=== PATIENT | male | born 1980 | race African-American/Black ===

== ENCOUNTER 2016-11-21 21:34 | Inpatient (IN) | payer OTHER ==
[~2016-11-21] VITALS: Ht 180.3 cm; Wt 72.1 kg
[2016-11-21 21:54] VITALS: BP 140/79; PULSE 96; RESP 22; O2SAT 94
[2016-11-21] MEDS ORDERED: SODIUM CHLOR 0.9% 1000 ML INJ 1,000 ML IV SCH ×2 (21:55→22:59)
[2016-11-21] MEDS ORDERED: LORazepam 2 MG/ML VIAL ONE (21:57)
[2016-11-21] MEDS ORDERED: LORazepam 2 MG/ML VIAL IM ONE (22:00)
--- NOTE | 2016-11-21 22:07 | PD ---
HPI Chief Complaint: Psychiatric Symptoms Time Seen by Provider: 21:55 Travel History International Travel<30 days: No Contact w/Intl Traveler<30days: No Traveled to known affect area: No History of Present Illness HPI This is a patient whose legal name is Robert Valero who has been seen here in the past for cocaine-related issues including seizures, rhabdomyolysis. He presents now under [place] act initiated by the Police Department. Reportedly the patient is living in a sober living community however he locked himself in the bathroom and used fllacca. The patient is currently tremulous, agitated and only minimally responding to questions. Therefore history is limited. [facility] Social History Alcohol Use: Yes Tobacco Use: Yes Substance Use: Yes Allergies-Medications (Allergen,Severity, Reaction): Coded Allergies: No Known Allergies (Unverified , 11/21/16) Reported Meds & Prescriptions Reported Meds & Active Scripts Active Active Prescriptions or Reported Medications Unobtainable Review of Systems ROS Limitations: Altered Mental Status, Combative Except as stated in HPI: all other systems reviewed are Neg Physical Exam Exam Limitations: Altered Mental Status, Combative Narrative GENERAL: This is a well-developed well-nourished male who is visibly agitated, tremulous, muttering to himself. SKIN: Warm and dry. HEAD: Atraumatic. Normocephalic. EYES: Pupils equal and round. No scleral icterus. No injection or drainage. ENT: No nasal bleeding or discharge. Mucous membranes pink and moist. NECK: Trachea midline. No JVD. CARDIOVASCULAR: Regular rate and rhythm. No murmur appreciated. RESPIRATORY: No accessory muscle use. Clear to auscultation. Breath sounds equal bilaterally. GASTROINTESTINAL: Abdomen soft, non-tender, nondistended. Hepatic and splenic margins not palpable. MUSCULOSKELETAL: No obvious deformities. No clubbing. No cyanosis. No edema. NEUROLOGICAL: Awake and alert. No obvious cranial nerve deficits. Motor grossly within normal limits. Data Data Last Documented VS Vital Signs Date Time Temp Pulse Resp B/P (MAP) Pulse Ox O2 Delivery O2 Flow Rate FiO2 11/21/16 23:36 87 18 135/75 (95) 95 Room Air Orders Orders Lorazepam Inj (Ativan Inj) (11/21/16 22:00) Complete Blood Count With Diff (11/21/16 21:55) Comprehensive Metabolic Panel (11/21/16 21:55) Creatine Kinase (Cpk) (11/21/16 21:55) Thyroid Stimulating Hormone (11/21/16 21:55) Ct Brain W/O Iv Contrast(Rout) (11/21/16 21:55) Sodium Chlor 0.9% 1000 Ml Inj (Ns 1000 M (11/21/16 21:55) Drug Screen, Random Urine (11/21/16 21:55) Alcohol (Ethanol) (11/21/16 21:55) Lorazepam Inj (Ativan Inj) (11/21/16 21:57) Haloperidol Inj (Haldol Inj) (11/21/16 22:30) Diphenhydramine Inj (Benadryl Inj) (11/21/16 22:30) Ecg Monitoring (11/21/16 22:28) Oximetry (11/21/16 22:28) End Tidal Co2 (Etco2) (11/21/16 ) Midazolam Inj (Versed Inj) (11/21/16 22:47) Sodium Chlor 0.9% 1000 Ml Inj (Ns 1000 M (11/21/16 22:59) Midazolam Inj (Versed Inj) (11/21/16 23:15) CKMB (11/21/16 22:50) CKMB% (11/21/16 22:50) Lactic Acid (11/21/16 23:40) Midazolam Inj (Versed Inj) (11/22/16 00:00) Add Patient To Providers List (11/22/16 ) Admit Order (Ed Use Only) (11/22/16 01:24) Labs Laboratory Tests Test 11/21/16 22:50 11/21/16 23:50 White Blood Count 11.6 TH/MM3 Red Blood Count 4.30 MIL/MM3 Hemoglobin 14.2 GM/DL Hematocrit 41.3 % Mean Corpuscular Volume 96.2 FL Mean Corpuscular Hemoglobin 33.1 PG Mean Corpuscular Hemoglobin Concent 34.4 % Red Cell Distribution Width 13.5 % Platelet Count 176 TH/MM3 Mean Platelet Volume 8.5 FL Neutrophils (%) (Auto) 67.9 % Lymphocytes (%) (Auto) 17.9 % Monocytes (%) (Auto) 13.4 % Eosinophils (%) (Auto) 0.1 % Basophils (%) (Auto) 0.7 % Neutrophils # (Auto) 7.9 TH/MM3 Lymphocytes # (Auto) 2.1 TH/MM3 Monocytes # (Auto) 1.6 TH/MM3 Eosinophils # (Auto) 0.0 TH/MM3 Basophils # (Auto) 0.1 TH/MM3 CBC Comment DIFF FINAL Differential Comment Blood Urea Nitrogen 23 MG/DL Creatinine 2.19 MG/DL Random Glucose 78 MG/DL Total Protein 8.5 GM/DL Albumin 4.4 GM/DL Calcium Level 9.2 MG/DL Alkaline Phosphatase 84 U/L Aspartate Amino Transf (AST/SGOT) 44 U/L Alanine Aminotransferase (ALT/SGPT) 21 U/L Total Bilirubin 1.2 MG/DL Sodium Level 134 MEQ/L Potassium Level 3.6 MEQ/L Chloride Level 98 MEQ/L Carbon Dioxide Level 19.4 MEQ/L Anion Gap 17 MEQ/L Estimat Glomerular Filtration Rate 32 ML/MIN Total Creatine Kinase 1172 U/L Creatine Kinase MB 4.5 NG/ML Creatine Kinase MB % 0.4 % Thyroid Stimulating Hormone 3rd Gen 0.534 uIU/ML Ethyl Alcohol Level LESS THAN 3 MG/DL Lactic Acid Level 1.2 mmol/L MDM Medical Decision Making Medical Screen Exam Complete: Yes Emergency Medical Condition: Yes Medical Record Reviewed: Yes Differential Diagnosis Sympathomimetic drug abuse versus delirium versus encephalopathy versus acute psychosis versus schizophrenia Narrative Course This patient required multiple doses of benzodiazepines as well as 1 dose of Benadryl and Haldol for sedation in order to obtain labwork and imaging studies. IV fluids were ordered. The patient was placed in restraints. He was placed on ECG monitoring and pulse oximetry. Lab work reveals a total CK of 1172 as well as a BUN of 23 and a creatinine of 2.9 which is elevated from his baseline. CT of the brain is normal. At this point in time the plan is to admit the patient for further evaluation and treatment. Diagnosis Primary Impression: Substance-induced delirium Additional Impressions: Acute renal insufficiency Rhabdomyolysis Qualified Codes: M62.82 - Rhabdomyolysis Admitting Information Admitting Physician Requests: Admit Scripts Unable to Obtain Active Prescriptions or Reported Meds Se Mo Nov 21, 2016 22:06
[2016-11-21] MEDS ORDERED: HALOPERIDOL LACTATE 5 MG/ML AMP IM ONE (22:30)
[2016-11-21] MEDS ORDERED: diphenhydrAMINE HCL 50 MG/ML VIAL IM ONE (22:30)
[2016-11-21] MEDS ORDERED: MIDAZOLAM HCL 5 MG/ML VIAL (1 ML) ONE (22:47)
--- NOTE | 2016-11-21 23:05 | PD ---
Physical Exam Narrative I, Dr. Perez, have reviewed the advance practice practitioner's documentation and am in agreement, met with the patient face to face, made the diagnosis, and the medical decision making was done by me. *My assessment and Findings: Drug induced psychosis vs. drug induced rhabdomyolysis This is Robert Valero. 36yo M under [place] after smoking flakka in drug rehab residence. Pt was found sitting outside bathroom drinking water and apparently had locked himself in the bathroom and smoke flakka. Unable to obtain further history as pt is screaming, uncooperative and thrashing around in the bed. Pt moving all extremities and no overt signs of trauma but not answering questions. Pt has been here before for rhabdomyolysis and cocaine induced seizure. Pt initially given ativan 2mg IM because he was a threat to himself and others. However, pt was still very agitated and a threat to others so haldol 5mg IM, versed 4mg IV and diphenhydramine 50mg IV given. Pt was calm after these medications and placed on continuous cardiac monitoring and end tidal CO2. Pt was about to go to CT scan and started thrashing around and being a harm to himself. Another 2 mg of versed ordered and given. Labs reviewed, WBC 11.6. Lactic acid normal at 1.2. Creatinine elevated at 2.19 with CPK of 1172. Pt's creatinine was normal before. Alcohol negative. CT brain negative. Pt is on continuous monitor and vital signs are stable. Pt is easily agitated and arousable with stimulation. Discussed with hospitalist who does not feel comfortable having him on a regular floor so soil sampler Dr. Koenig called for admission for drug induced delirium with acute renal failure and rhabdomyolysis. Pt given NS IVF x2. Discussed with Dr. Koenig and accepted to his service. Data Data Last Documented VS Vital Signs Date Time Temp Pulse Resp B/P (MAP) Pulse Ox O2 Delivery O2 Flow Rate FiO2 11/21/16 23:36 87 18 135/75 (95) 95 Room Air Orders Orders Lorazepam Inj (Ativan Inj) (11/21/16 22:00) Complete Blood Count With Diff (11/21/16 21:55) Comprehensive Metabolic Panel (11/21/16 21:55) Creatine Kinase (Cpk) (11/21/16 21:55) Thyroid Stimulating Hormone (8/20/17 21:55) Ct Brain W/O Iv Contrast(Rout) (11/21/16 21:55) Sodium Chlor 0.9% 1000 Ml Inj (Ns 1000 M (11/21/16 21:55) Drug Screen, Random Urine (11/21/16 21:55) Alcohol (Ethanol) (11/21/16 21:55) Lorazepam Inj (Ativan Inj) (11/21/16 21:57) Haloperidol Inj (Haldol Inj) (11/21/16 22:30) Diphenhydramine Inj (Benadryl Inj) (11/21/16 22:30) Ecg Monitoring (11/21/16 22:28) Oximetry (11/21/16 22:28) End Tidal Co2 (Etco2) (11/21/16 ) Midazolam Inj (Versed Inj) (11/21/16 22:47) Sodium Chlor 0.9% 1000 Ml Inj (Ns 1000 M (11/21/16 22:59) Midazolam Inj (Versed Inj) (11/21/16 23:15) CKMB (11/21/16 22:50) CKMB% (11/21/16 22:50) Lactic Acid (11/21/16 23:40) Midazolam Inj (Versed Inj) (11/22/16 00:00) Add Patient To Providers List (11/22/16 ) Labs Laboratory Tests Test 11/21/16 22:50 11/21/16 23:50 White Blood Count 11.6 TH/MM3 Red Blood Count 4.30 MIL/MM3 Hemoglobin 14.2 GM/DL Hematocrit 41.3 % Mean Corpuscular Volume 96.2 FL Mean Corpuscular Hemoglobin 33.1 PG Mean Corpuscular Hemoglobin Concent 34.4 % Red Cell Distribution Width 13.5 % Platelet Count 176 TH/MM3 Mean Platelet Volume 8.5 FL Neutrophils (%) (Auto) 67.9 % Lymphocytes (%) (Auto) 17.9 % Monocytes (%) (Auto) 13.4 % Eosinophils (%) (Auto) 0.1 % Basophils (%) (Auto) 0.7 % Neutrophils # (Auto) 7.9 TH/MM3 Lymphocytes # (Auto) 2.1 TH/MM3 Monocytes # (Auto) 1.6 TH/MM3 Eosinophils # (Auto) 0.0 TH/MM3 Basophils # (Auto) 0.1 TH/MM3 CBC Comment DIFF FINAL Differential Comment Blood Urea Nitrogen 23 MG/DL Creatinine 2.19 MG/DL Random Glucose 78 MG/DL Total Protein 8.5 GM/DL Albumin 4.4 GM/DL Calcium Level 9.2 MG/DL Alkaline Phosphatase 84 U/L Aspartate Amino Transf (AST/SGOT) 44 U/L Alanine Aminotransferase (ALT/SGPT) 21 U/L Total Bilirubin 1.2 MG/DL Sodium Level 134 MEQ/L Potassium Level 3.6 MEQ/L Chloride Level 98 MEQ/L Carbon Dioxide Level 19.4 MEQ/L Anion Gap 17 MEQ/L Estimat Glomerular Filtration Rate 32 ML/MIN Total Creatine Kinase 1172 U/L Creatine Kinase MB 4.5 NG/ML Creatine Kinase MB % 0.4 % Thyroid Stimulating Hormone 3rd Gen 0.534 uIU/ML Ethyl Alcohol Level LESS THAN 3 MG/DL Lactic Acid Level 1.2 mmol/L MDM Supervised Visit with MIREYA: Yes Critical Care Narrative Aggregate critical care time was 60 minutes. Time to perform other separately billable procedures was not included in the critical care time. My time did not include minutes spent treating any other patients simultaneously or on activities that did not directly contribute to the patient's treatment. The services I provided to this patient were to treat and/or prevent clinically significant deterioration that could result in: cardiovascular collapse or . I provided critical care services requiring my management, as noted below: Chart data review, documentation time, medication orders and management, vital sign assessments/reviewing monitor data, ordering and reviewing lab tests, ordering and interpreting/reviewing x-rays and diagnostic studies, care of the patient and discussion of the patient with the admitting physicians. Diagnosis Primary Impression: Drug-induced delirium Additional Impressions: BASSEM (acute kidney injury) Rhabdomyolysis Qualified Codes: M62.82 - Rhabdomyolysis Admitting Information Admitting Physician Requests: Admit Scripts Unable to Obtain Active Prescriptions or Reported Meds Karen Perez DO Nov 21, 2016 23:05
[2016-11-21 23:12] LABS: AUTOMATED NEUTROPHIL # 7.9 TH/MM3 (1.8-7.7); BASOPHIL # 0.1 TH/MM3 (0-0.2); BASOPHIL % 0.7 % (0.0-2.0); EOSINOPHIL % 0.1 % (0.0-4.0); HEMATOCRIT 41.3 % (39.0-51.0); HEMO FLAGS DIFF FINAL; LYMPH % 17.9 % (9.0-44.0); LYMPHOCYTE # 2.1 TH/MM3 (1.0-4.8); MEAN CELL VOLUME 96.2 FL (80.0-100.0); MEAN CORPUSCULAR HEMOGLOBIN 33.1 PG (27.0-34.0); MEAN CORPUSCULAR HGB CONC 34.4 % (32.0-36.0); MONO % 13.4 % (0.0-8.0); NEUT % 67.9 % (16.0-70.0); PLATELET COUNT 176 TH/MM3 (150-450); RED CELL DISTRIBUTION WIDTH 13.5 % (11.6-17.2); WHITE BLOOD COUNT 11.6 TH/MM3 (4.0-11.0)
[2016-11-21] MEDS ORDERED: MIDAZOLAM HCL 2 MG/2 ML VIAL IV PUSH ONE (23:15)
[2016-11-21 23:36] VITALS: BP 135/75; PULSE 87; RESP 18; O2SAT 95
[2016-11-21 23:38] LABS: ALCOHOL LESS THAN 3 MG/DL (0-5); ALKALINE PHOSPHATASE 84 U/L (45-117); ALT (GPT) 21 U/L (12-78); ANION GAP 17 MEQ/L (5-15); AST (GOT) 44 U/L (15-37); BICARBONATE 19.4 MEQ/L (21.0-32.0); BLOOD UREA NITROGEN 23 MG/DL (7-18); CHLORIDE 98 MEQ/L (98-107); CREATINE KINASE 1172 U/L (39-308); GLOMERULAR FILTRATION RATE 32 ML/MIN (>89); POTASSIUM 3.6 MEQ/L (3.5-5.1); SODIUM (NA) 134 MEQ/L (136-145); TOTAL BILIRUBIN ADULT 1.2 MG/DL (0.2-1.0)
[2016-11-21 23:50] LABS: CKMB 4.5 NG/ML (0.5-3.6)
[2016-11-22] VITALS (18 sets, daily range): BP systolic 126–179; BP diastolic 69–104; PULSE 46–77; RESP 12–18; TEMP 98.3–98.6; O2SAT 95–100
[2016-11-22] MEDS ORDERED: MIDAZOLAM HCL 2 MG/2 ML VIAL IV PUSH ONE
--- NOTE | 2016-11-22 00:44 | RADRPT ---
EXAM DATE/TIME: 11/22/2016 00:23 [place] COMPARISON: No previous studies available for comparison. INDICATIONS : Altered mental status. RADIATION DOSE: 56.35 CTDIvol (mGy) MEDICAL HISTORY : Non-responsive. SURGICAL HISTORY : Non-responsive. ENCOUNTER: Initial ACUITY: 1 day PAIN SCALE: Non-responsive LOCATION: cranial TECHNIQUE: Multiple contiguous axial images were obtained of the head. Using automated exposure control and adj ustment of the mA and/or kV according to patient size, radiation dose was kept as low as reasonably a chievable to obtain optimal diagnostic quality images. DICOM format image data is available electro nically for review and comparison. FINDINGS: CEREBRUM: The ventricles are normal for age. No evidence of midline shift, mass lesion, hemorrhage or acute in farction. No extra-axial fluid collections are seen. POSTERIOR FOSSA: The cerebellum and brainstem are intact. The 4th ventricle is midline. The cerebellopontine angle i s unremarkable. EXTRACRANIAL: The visualized portion of the orbits is intact. SKULL: The calvaria is intact. No evidence of skull fracture. CONCLUSION: Normal examination. Ari Perales MD on November 22, 2016 at 0:40 Board Certified Radiologist. This report was verified electronically.
[2016-11-22] MEDS ORDERED: SODIUM BICARBONATE 8.4% INJ 150 MEQ in DEXTROSE 5% IN WATE 1000ML INJ 1,000 ML IV SCH ×2 (01:30)
--- NOTE | 2016-11-22 01:30 | HHI.HP ---
HPI Service Critical Care Medicine Primary Care Physician Unknown Admission Diagnosis drug-induced delirium, acute renal insufficiency, rhabdomyolysis Diagnosis: Travel History International Travel<30 Days: No Contact w/Intl Traveler <30 Da: No Traveled to Known Affected Are: No History of Present Illness This is a patient whose legal name is Robert Valero who has been seen by me here in the past for cocaine-related issues including seizures, and rhabdomyolysis. He presents today under [place] act initiated by the Police Department. Reportedly the patient is living in a sober living community however he locked himself in the bathroom and used Fllacca. The patient is currently tremulous, agitated and only minimally responding to questions is very limited history to be able to obtain. Review of Systems ROS Unobtainable due to patient's altered mental status and agitation Past Family Social History Allergies: Coded Allergies: No Known Allergies (Unverified , 11/21/16) Past Medical History Polysubstance abuse Rhabdomyolysis Past Surgical History None Reported Medications Reported Meds & Active Scripts Active Active Prescriptions or Reported Medications Unobtainable Active Ordered Medications Current Medications Medications (Trade) Dose Ordered Sig/[place] Route PRN Reason Start Time Stop Time Status Last Admin Dose Admin Sodium Bicarbonate 150 meq/Dextrose 1,150 ml @ 75 mls/hr [id number] IV 11/22/16 01:30 11/22/16 02:43 Sodium Chloride 1,000 ml @ 84 mls/hr [id number] IV 11/22/16 01:31 11/22/16 03:00 Sodium Chloride (NS Flush) 2 ml UNSCH PRN .XX FLUSH AFTER USING IV ACCESS 11/22/16 01:45 Sodium Chloride (NS Flush) 2 ml BID .XX 11/22/16 09:00 Acetaminophen (Tylenol) 650 mg Q6H PRN PO PAIN 1-10 AND/OR FEVER >101F 11/22/16 01:45 Famotidine (Pepcid Inj) 20 mg Q12HR IV PUSH 11/22/16 09:00 Albuterol/ Ipratropium (Duoneb Neb) 1 ampule Q2HR NEB PRN INH WHEEZING 11/22/16 01:45 Heparin Sodium (Porcine) (Heparin Inj) 5,000 units Q12H SQ 11/22/16 01:45 11/22/16 03:01 Miscellaneous Information 1 [id number] XX 11/22/16 01:45 Chlorhexidine Gluconate (Chlorhexidine 2% Cloth) 3 pack Taper DAILY@04 TOP 11/22/16 04:00 11/18/17 03:59 Chlorhexidine Gluconate (Chlorhexidine 2% Cloth) 3 pack UNSCH PRN TOP HYGIENIC CARE 11/22/16 01:45 Senna/Docusate Sodium (Nakia-Colace) 1 tab BID PO 11/22/16 09:00 Magnesium Hydroxide (Milk Of Magnesia Liq) 30 ml Q12H PRN PO MILD - MODERATE CONSTIPATION 11/22/16 01:45 Sennosides (Senokot) 17.2 mg Q12H PRN PO MODERATE - SEVERE CONSTIPATION 11/22/16 01:45 Bisacodyl (Dulcolax Supp) 10 mg DAILY PRN RECTAL SEVERE CONSITIPATION 11/22/16 01:45 Lactulose (Lactulose Liq) 30 ml DAILY PRN PO SEVERE CONSITIPATION 11/22/16 01:45 Family History Unobtainable Social History History of cocaine abuse Undergoing substance abuse treatment Physical Exam Vital Signs Vital Signs Date Time Temp Pulse Resp B/P (MAP) Pulse Ox O2 Delivery O2 Flow Rate FiO2 11/21/16 23:36 87 18 135/75 (95) 95 Room Air 11/21/16 21:54 96 22 140/79 (99) 94 Physical Exam GENERAL: Well-nourished, well-developed patient. Young man, agitated not following commands SKIN: Warm and dry. HEAD: Normocephalic. EYES: No scleral icterus. No injection or drainage. NECK: Supple, trachea midline. No JVD or lymphadenopathy. CARDIOVASCULAR: Regular rate and rhythm without murmurs, gallops, or rubs. RESPIRATORY: Breath sounds equal bilaterally. No accessory muscle use. GASTROINTESTINAL: Abdomen soft, non-tender, nondistended. MUSCULOSKELETAL: No cyanosis, or edema. BACK: Nontender without obvious deformity. NEURO EXAM: GCS: M5 V3 E4 Mental Status: The patient is agitated and confused Cranial Nerves: Pupils are round, reactive to light. Reflexes: Biceps, patellar, and Achilles are 2/4 bilaterally. Occasional clonus after stimulation. Motor: Good muscle tone. Strength is 5/5 bilaterally. Cerebellar: [id number] and gvox-[id number] test unable to examine. Laboratory Laboratory Tests Test 11/21/16 22:50 11/21/16 23:50 White Blood Count 11.6 Red Blood Count 4.30 Hemoglobin 14.2 Hematocrit 41.3 Mean Corpuscular Volume 96.2 Mean Corpuscular Hemoglobin 33.1 Mean Corpuscular Hemoglobin Concent 34.4 Red Cell Distribution Width 13.5 Platelet Count 176 Mean Platelet Volume 8.5 Neutrophils (%) (Auto) 67.9 Lymphocytes (%) (Auto) 17.9 Monocytes (%) (Auto) 13.4 Eosinophils (%) (Auto) 0.1 Basophils (%) (Auto) 0.7 Neutrophils # (Auto) 7.9 Lymphocytes # (Auto) 2.1 Monocytes # (Auto) 1.6 Eosinophils # (Auto) 0.0 Basophils # (Auto) 0.1 CBC Comment DIFF FINAL Differential Comment Blood Urea Nitrogen 23 Creatinine 2.19 Random Glucose 78 Total Protein 8.5 Albumin 4.4 Calcium Level 9.2 Alkaline Phosphatase 84 Aspartate Amino Transf (AST/SGOT) 44 Alanine Aminotransferase (ALT/SGPT) 21 Total Bilirubin 1.2 Sodium Level 134 Potassium Level 3.6 Chloride Level 98 Carbon Dioxide Level 19.4 Anion Gap 17 Estimat Glomerular Filtration Rate 32 Total Creatine Kinase 1172 Creatine Kinase MB 4.5 Creatine Kinase MB % 0.4 Thyroid Stimulating Hormone 3rd Gen 0.534 Ethyl Alcohol Level LESS THAN 3 Lactic Acid Level 1.2 Result Diagram: 11/21/16224911/21/162249 Course Altered mental status - Fllacca intoxication - Haldol and Ativan when necessary for agitation - Neuro checks per unit protocol Rhabdomyolysis - Urine alkalinization with sodium bicarbonate - Monitor CPK Acute kidney injury - Due to above - Strict I's and O's - Ernst insertion - Monitor creatinine and electrolytes Hypertension - Hydralazine when necessary to keep SBP less than 160 and the DBP less than 90 DVT GI prophylaxis - Teds SCDs - Subcutaneous heparin - Pepcid Critical Care: The total critical care time was 35 minutes. Time to perform other separately billable procedures was not included in the critical care time. Caprini VTE Risk Assessment Caprini VTE Risk Assessment: Mod/High Risk (score >= 2) Caprini Risk Assessment Model Point Value = 1 Point Value = 2 Point Value = 3 Point Value = 5 Age 41-60 Minor surgery BMI > 25 kg/m2 Swollen legs Varicose veins or History of unexplained or recurrent spontaneous Oral contraceptives or hormone replacement Sepsis (< 1 month) Serious lung disease, including pneumonia (< 1 month) Abnormal pulmonary function Acute myocardial infarction Congestive heart failure (< 1 month) History of inflammatory bowel disease Medical patient at bed rest Age 61-74 Arthroscopic surgery Major open surgery (> 45 min) Laparoscopic surgery (> 45 min) Malignancy Confined to bed (> 72 hours) Immobilizing plaster cast Central venous access Age >= 75 History of VTE Family history of VTE Factor V Leiden Prothrombin [id number] Lupus anticoagulant Anticardiolipin antibodies Elevated serum homocysteine Heparin-induced thrombocytopenia Other congenital or acquired thrombophilia Stroke (< 1 month) Elective arthroplasty Hip, pelvis, or leg fracture Acute spinal cord injury (< 1 month) Prophylaxis Regimen Total Risk Factor Score Risk Level Prophylaxis Regimen 0-1 Low Early ambulation 2 Moderate Order ONE of the following: *Sequential Compression Device (SCD) *Heparin 5000 units SQ BID 3-4 Higher Order ONE of the following medications: *Heparin 5000 units SQ TID *Enoxaparin/Lovenox 40 mg SQ daily (WT < 150 kg, CrCl > 30 mL/min) *Enoxaparin/Lovenox 30 mg SQ daily (WT < 150 kg, CrCl > 10-29 mL/min) *Enoxaparin/Lovenox 30 mg SQ BID (WT < 150 kg, CrCl > 30 mL/min) AND/OR *Sequential Compression Device (SCD) 5 or more Highest Order ONE of the following medications: *Heparin 5000 units SQ TID (Preferred with Epidurals) *Enoxaparin/Lovenox 40 mg SQ daily (WT < 150 kg, CrCl > 30 mL/min) *Enoxaparin/Lovenox 30 mg SQ daily (WT < 150 kg, CrCl > 10-29 mL/min) *Enoxaparin/Lovenox 30 mg SQ BID (WT < 150 kg, CrCl > 30 mL/min) AND *Sequential Compression Device (SCD) Puneet Koenig MD Nov 22, 2016 01:30
[2016-11-22] MEDS ORDERED: LACTULOSE SYRUP 20 GM/30 ML CUP PO PRN (01:45)
[2016-11-22] MEDS ORDERED: MISCELLANEOUS NURSING INFORMATION XX SCH (01:45)
[2016-11-22] MEDS ORDERED: SENNOSIDES 8.6 MG TAB PO PRN (01:45)
[2016-11-22] MEDS ORDERED: SODIUM CHLORIDE 0.9% FLUSH 10 ML FLUSH PRN (01:45)
[2016-11-22] MEDS ORDERED: ACETAMINOPHEN 325 MG TAB PO PRN (01:45)
[2016-11-22] MEDS ORDERED: BISACODYL 10 MG SUPP RECTAL PRN (01:45)
[2016-11-22] MEDS ORDERED: RESP: ALBUTEROL 2.5 MG/IPRATROPIUM 0.5 MG NEB (PRN) INH (01:45)
[2016-11-22] MEDS ORDERED: CHLORHEXIDINE GLUCONATE 2 % 1 PACK (2 CLOTHS) TOP PRN (01:45)
[2016-11-22] MEDS ORDERED: MAGNESIUM HYDROXIDE SUSP 30 ML CUP PO PRN (01:45)
[2016-11-22] MEDS: SODIUM CHLOR 0.9% 1000 ML INJ 1,000 ML IV SCH ×2 (03:00→15:52)
[2016-11-22] MEDS: HEPARIN SODIUM - SQ 10,000 UNITS/ML VIAL SQ SCH ×2 (03:01→15:52)
[2016-11-22] MEDS: CHLORHEXIDINE GLUCONATE 2 % 1 PACK (2 CLOTHS) TOP SCH (04:00)
[2016-11-22 05:28] LABS: CKMB 5.3 NG/ML (0.5-3.6)
[2016-11-22] MEDS ORDERED: hydrALAZINE HCL 20 MG/ML VIAL IV PUSH PRN (05:30)
[2016-11-22] MEDS ORDERED: LORazepam 2 MG/ML VIAL IV PUSH PRN (05:30)
[2016-11-22] MEDS ORDERED: HALOPERIDOL LACTATE 5 MG/ML AMP IV PUSH PRN (05:30)
[2016-11-22] MEDS: SODIUM CHLORIDE 0.9% FLUSH 10 ML FLUSH SCH ×2 (08:28→21:00)
[2016-11-22] MEDS: DOCUSATE SODIUM 50 MG/SENNA 8.6 MG TAB PO SCH ×2 (09:00→21:00)
[2016-11-22] MEDS: FAMOTIDINE 20 MG/2 ML VIAL IV PUSH SCH ×2 (09:26→21:00)
[2016-11-22 09:40] LABS: BICARBONATE 22.6 MEQ/L (21.0-32.0)
[2016-11-22 10:05] LABS: CKMB 5.1 NG/ML (0.5-3.6)
[2016-11-22] MEDS ORDERED: POTASSIUM CHLOR 20 MEQ PREMIX 100 ML IV ONE (14:00)
[2016-11-22] MEDS: POTASSIUM CHLORIDE 20 MEQ CONTROLLED RELEASE TAB PO SCH (21:00)
[2016-11-23] VITALS (7 sets, daily range): BP systolic 132–195; BP diastolic 82–117; PULSE 55–75; RESP 18–20; TEMP 97.6–98.6; O2SAT 95–100
[2016-11-23] MEDS: HEPARIN SODIUM - SQ 10,000 UNITS/ML VIAL SQ SCH ×2 (01:10→01:45)
[2016-11-23] MEDS: SODIUM CHLOR 0.9% 1000 ML INJ 1,000 ML IV SCH ×2 (02:21→21:48)
[2016-11-23] MEDS: CHLORHEXIDINE GLUCONATE 2 % 1 PACK (2 CLOTHS) TOP SCH (04:00)
[2016-11-23 04:20] LABS: AUTOMATED NEUTROPHIL # 2.1 TH/MM3 (1.8-7.7); BASOPHIL % 0.6 % (0.0-2.0); EOSINOPHIL # 0.1 TH/MM3 (0-0.4); EOSINOPHIL % 2.9 % (0.0-4.0); HEMATOCRIT 37.9 % (39.0-51.0); HEMO FLAGS DIFF FINAL; LYMPH % 35.7 % (9.0-44.0); LYMPHOCYTE # 1.7 TH/MM3 (1.0-4.8); MEAN CELL VOLUME 96.3 FL (80.0-100.0); MEAN CORPUSCULAR HEMOGLOBIN 31.9 PG (27.0-34.0); MEAN CORPUSCULAR HGB CONC 33.1 % (32.0-36.0); NEUT % 45.8 % (16.0-70.0); PLATELET COUNT 160 TH/MM3 (150-450); RED BLOOD COUNT 3.93 MIL/MM3 (4.50-5.90); RED CELL DISTRIBUTION WIDTH 12.9 % (11.6-17.2); WHITE BLOOD COUNT 4.7 TH/MM3 (4.0-11.0)
[2016-11-23 04:39] LABS: ALT (GPT) 15 U/L (12-78); ANION GAP 6 MEQ/L (5-15); AST (GOT) 25 U/L (15-37); BICARBONATE 32.6 MEQ/L (21.0-32.0); BLOOD UREA NITROGEN 15 MG/DL (7-18); CHLORIDE 102 MEQ/L (98-107); GLOMERULAR FILTRATION RATE 76 ML/MIN (>89); MAGNESIUM 2.4 MG/DL (1.5-2.5); POTASSIUM 3.1 MEQ/L (3.5-5.1); SODIUM (NA) 141 MEQ/L (136-145)
[2016-11-23 04:41] LABS: ALKALINE PHOSPHATASE 82 U/L (45-117); CREATINE KINASE 658 U/L (39-308); TOTAL BILIRUBIN ADULT 0.4 MG/DL (0.2-1.0)
[2016-11-23 04:58] LABS: CKMB 2.3 NG/ML (0.5-3.6)
[2016-11-23] MEDS ORDERED: ENALAPRILAT 1.25 MG/ML VIAL IV PRN (06:00)
[2016-11-23] MEDS: POTASSIUM CHLORIDE 20 MEQ CONTROLLED RELEASE TAB PO SCH ×2 (09:58→21:47)
[2016-11-23] MEDS: FAMOTIDINE 20 MG/2 ML VIAL IV PUSH SCH ×2 (09:58→21:50)
--- NOTE | 2016-11-23 15:16 | HHI.PR ---
Subjective Remarks no complains of pain good po, no nausea or vomiting Objective Vitals Vital Signs Date Time Temp Pulse Resp B/P (MAP) Pulse Ox O2 Delivery O2 Flow Rate FiO2 11/23/16 12:18 98.4 72 18 160/96 (117) 96 11/23/16 08:31 98.6 65 18 155/95 (115) 97 11/23/16 05:56 98.5 75 20 158/100 (119) 98 11/23/16 00:00 97.6 74 18 132/82 (99) 95 11/22/16 20:00 98.6 77 18 138/85 (102) 95 11/22/16 17:48 98.3 65 18 126/69 (88) 98 11/22/16 17:15 11/22/16 16:30 46 17 139/81 (100) 98 Room Air 11/22/16 15:30 54 15 127/78 (94) 99 Room Air I/O 11/22/16 11/22/16 11/22/16 11/23/16 11/23/16 11/23/16 06:59 14:59 22:59 06:59 14:59 22:59 Intake Total 360 ml Output Total 300 ml 300 ml Balance -300 ml -300 ml 360 ml Intake Oral 360 ml Output Urine Total 300 ml 300 ml # Voids 0 0 3 Result Diagram: 11/23/1634611/23/16346 Imaging Last Impressions Head CT 11/21/162154 Signed Impressions: Service Date/Time: Tuesday, November 22, 2016 00:23 - CONCLUSION: Normal examination. Ari Perales MD Objective Remarks awake and alert, NAD anicteric no nuchal rigidity lungs clear regular rhythm abdomen soft nontender extremities no edema up and ambulating Urinary Catheter: Yes Assessment to: Remove Date of Removal: Nov 23, 2016 A/P Assessment and Plan Altered mental status secondary to PSA - Fllacca intoxication - Haldol and Ativan when necessary for agitation - Neuro checks per unit protocol Rhabdomyolysis -- conitnue IVF- DC HC03 - CK trending down S/P Polysubstance abuse -counselled extensively - CM consult for treatment program/drug rehab Acute kidney injury - non oliguric Hypokalemia -will DC HC03 drip -give IV KCL and po -recheck in am Hypertension - Hydralazine when necessary to keep SBP less than 160 and the DBP less than 90 DVT GI prophylaxis - Teds SCDs- patient encourage to up and ambulate - Subcutaneous heparin - Marcelo Cohen MD Nov 23, 2016 15:16
[2016-11-23] MEDS: DOCUSATE SODIUM 50 MG/SENNA 8.6 MG TAB PO SCH ×2 (21:48→21:51)
[2016-11-23] MEDS: NS + KCL 20 MEQ INJ 1,000 ML IV SCH (21:48)
[2016-11-23] MEDS: SODIUM CHLORIDE 0.9% FLUSH 10 ML FLUSH SCH (21:51)
[2016-11-24 01:10] VITALS: BP 155/77; PULSE 54; RESP 18; TEMP 97; O2SAT 97
[2016-11-24] MEDS: HEPARIN SODIUM - SQ 10,000 UNITS/ML VIAL SQ SCH ×2 (01:45→13:45)
[2016-11-24] MEDS: CHLORHEXIDINE GLUCONATE 2 % 1 PACK (2 CLOTHS) TOP SCH (04:00)
[2016-11-24 08:00] VITALS: BP 179/104; PULSE 75; RESP 20; TEMP 98.1; O2SAT 97
[2016-11-24] MEDS: SODIUM CHLOR 0.9% 1000 ML INJ 1,000 ML IV SCH ×2 (08:44→08:49)
[2016-11-24] MEDS: NS + KCL 20 MEQ INJ 1,000 ML IV SCH ×3 (08:44→21:15)
[2016-11-24] MEDS: SODIUM CHLORIDE 0.9% FLUSH 10 ML FLUSH SCH (08:45)
[2016-11-24] MEDS: DOCUSATE SODIUM 50 MG/SENNA 8.6 MG TAB PO SCH ×2 (08:45→21:00)
[2016-11-24] MEDS: FAMOTIDINE 20 MG/2 ML VIAL IV PUSH SCH (08:45)
[2016-11-24] MEDS: POTASSIUM CHLORIDE 20 MEQ CONTROLLED RELEASE TAB PO SCH (08:46)
[2016-11-24 11:17] LABS: BICARBONATE 29.8 MEQ/L (21.0-32.0); POTASSIUM 3.3 MEQ/L (3.5-5.1)
[2016-11-24 12:00] VITALS: BP 166/96; PULSE 71; RESP 20; TEMP 98.6; O2SAT 95
--- NOTE | 2016-11-24 12:50 | HHI.PR ---
Subjective Remarks no nausea or vomiting patient actively wants to seek treatment program for his drug addiction states he wants to stay clean Objective Vitals Vital Signs Date Time Temp Pulse Resp B/P (MAP) Pulse Ox O2 Delivery O2 Flow Rate FiO2 11/24/16 08:00 98.1 75 20 179/104 (129) 97 11/24/16 01:10 97.0 54 18 155/77 (103) 97 11/23/16 21:43 158/82 (107) 11/23/16 20:00 98.2 55 18 195/117 (143) 100 11/23/16 15:54 98.3 63 18 158/97 (117) 98 I/O 11/23/16 11/23/16 11/23/16 11/24/16 11/24/16 11/24/16 06:59 14:59 22:59 06:59 14:59 22:59 Intake Total 360 ml Balance 360 ml Intake Oral 360 ml # Voids 3 Result Diagram: 11/23/16 0347 11/24/16 0935 Imaging Last Impressions Head CT 11/21/16 1073 Signed Impressions: Service Date/Time: Tuesday, November 22, 2016 00:23 - CONCLUSION: Normal examination. Ari Perales MD Objective Remarks awake and alert, NAD anicteric lungs clear regular rhythm extremities no edema up and ambulating Date of Removal: Nov 23, 2016 A/P Assessment and Plan Altered mental status secondary to PSA- REsolved- MS normal - Flacca intoxication/cocaine/cannabis - Haldol and Ativan when necessary for agitation - Rhabdomyolysis -- conitnue IVF- encourage po - CK trending down Polysubstance abuse -counselled extensively - CM consult for treatment program/drug rehab HYpertesnion- per patient known history -start on Procardia po daily 30 mg XL Acute kidney injury- resolved - non oliguric Hypokalemia - KCL daily CM- [facility] referral DVT GI prophylaxis up and ambulating around Marcelo Fitch MD Nov 24, 2016 12:50
[2016-11-24] MEDS ORDERED: POTASSIUM CHLOR 10 MEQ PREMIX 100 ML IV ONE (13:00)
[2016-11-24] MEDS ORDERED: POTASSIUM CHLORIDE 10 MEQ CAP PO ONE (14:00)
[2016-11-24] MEDS: NIFEdipine 30 MG SUSTAINED RELEASE TAB PO SCH (14:34)
[2016-11-24 16:00] VITALS: BP 168/97; PULSE 55; RESP 20; TEMP 98.3; O2SAT 98
[2016-11-24 20:00] VITALS: BP 162/98; PULSE 61; RESP 18; TEMP 98.2; O2SAT 97
[2016-11-24 21:47] VITALS: BP 162/98; PULSE 61; RESP 18; TEMP 98.2; O2SAT 97
[2016-11-25] VITALS: BP 153/93; PULSE 71; RESP 20; TEMP 98.7; O2SAT 97
[2016-11-25] MEDS: POTASSIUM CHLORIDE 20 MEQ CONTROLLED RELEASE TAB PO SCH ×2 (00:08→09:05)
[2016-11-25] MEDS: HEPARIN SODIUM - SQ 10,000 UNITS/ML VIAL SQ SCH ×2 (00:10→13:31)
[2016-11-25] MEDS: SODIUM CHLORIDE 0.9% FLUSH 10 ML FLUSH SCH ×2 (00:11→09:00)
[2016-11-25] MEDS: SODIUM CHLOR 0.9% 1000 ML INJ 1,000 ML IV SCH ×2 (00:11→09:04)
[2016-11-25 04:00] VITALS: BP 166/76; PULSE 62; RESP 20; TEMP 97.5; O2SAT 96
[2016-11-25] MEDS: CHLORHEXIDINE GLUCONATE 2 % 1 PACK (2 CLOTHS) TOP SCH (04:00)
[2016-11-25] MEDS: NS + KCL 20 MEQ INJ 1,000 ML IV SCH (07:15)
[2016-11-25 08:47] VITALS: BP 155/98; PULSE 55; RESP 20; TEMP 98.4; O2SAT 96
[2016-11-25] MEDS: DOCUSATE SODIUM 50 MG/SENNA 8.6 MG TAB PO SCH (09:00)
[2016-11-25] MEDS: NIFEdipine 30 MG SUSTAINED RELEASE TAB PO SCH (09:06)
[2016-11-25 12:43] VITALS: BP 154/94; PULSE 63; RESP 20; TEMP 98.2; O2SAT 97
--- NOTE | 2016-11-25 14:07 | HHI.PR ---
Subjective Remarks no complains taking good po not suicidal but worried about getting into drugs again when DC repeat BP 140/80 Objective Vitals Vital Signs Date Time Temp Pulse Resp B/P (MAP) Pulse Ox O2 Delivery O2 Flow Rate FiO2 11/25/16 12:43 98.2 63 20 154/94 (114) 97 11/25/16 08:47 98.4 55 20 155/98 (117) 96 11/25/16 04:00 97.5 62 20 166/76 (106) 96 11/25/16 00:00 98.7 71 20 153/93 (113) 97 11/24/16 21:47 98.2 61 18 162/98 (119) 97 11/24/16 20:00 98.2 61 18 162/98 (119) 97 11/24/16 16:00 98.3 55 20 168/97 (120) 98 I/O 11/24/16 11/24/16 11/24/16 11/25/16 11/25/16 11/25/16 06:59 14:59 22:59 06:59 14:59 22:59 Intake Total 240 ml Output Total 300 ml Balance -60 ml Intake Oral 240 ml Output Urine Total 300 ml # Voids 1 # Bowel Movements 0 Result Diagram: 11/23/16 0347 11/24/16 0935 Imaging Last Impressions Head CT 11/21/162154 Signed Impressions: Service Date/Time: Tuesday, November 22, 2016 00:23 - CONCLUSION: Normal examination. Ari Perales MD Objective Remarks awake and alert, NAD lungs clear regular rhythm extremities no edema, no muscle tenderness up and ambulating- gait steady Date of Removal: Nov 23, 2016 A/P Assessment and Plan Altered mental status secondary to PSA- REsolved- MS normal - Flacca intoxication/cocaine/cannabis - Haldol and Ativan when necessary for agitation - Rhabdomyolysis -- conitnue IVF- - taking good po per patient - CK trending down Polysubstance abuse -counselled extensively - CM consult for treatment program/drug rehab as OP- patient very motivated HYpertesnion- per patient known history -started on Procardia po daily 30 mg XL= BP now- 140/70- will increase as needed Acute kidney injury- resolved - non oliguric Hypokalemia - KCL daily- recheck CM- [facility] referral- patient Hemal acted but not Thalia acted DVT GI prophylaxis up and ambulating around very well Marcelo Fitch MD Nov 25, 2016 14:07
[2016-11-25 14:24] VITALS: BP 142/81
[2016-11-25] MEDS ORDERED: NIFE30TA8 PO (14:27)
--- NOTE | 2016-11-25 14:31 | HHI.DS ---
Discharge Summary Admission Date Nov 22, 2016 at 01:25 Discharge Date: Nov 25, 2016 Admitting Diagnosis drug-induced delirium, acute renal insufficiency, rhabdomyolysis (1) delirium, drug related Diagnosis: Principal Procedures none Brief History - From Admission This is a patient whose legal name is Robert Valero who has been seen by me here in the past for cocaine-related issues including seizures, and rhabdomyolysis. He presents today under [place] act initiated by the [employer]. Reportedly the patient is living in a sober living community however he locked himself in the bathroom and used [place]. The patient is currently tremulous, agitated and only minimally responding to questions is very limited history to be able to obtain. CBC/BMP: 11/23/16 0347 11/24/16 0935 Significant Findings Laboratory Tests Test 11/23/16 03:47 11/24/16 09:35 Red Blood Count 3.93 MIL/MM3 (4.50-5.90) Hemoglobin 12.5 GM/DL (13.0-17.0) Hematocrit 37.9 % (39.0-51.0) Monocytes (%) (Auto) 15.0 % (0.0-8.0) Random Glucose 109 MG/DL (74-106) Total Protein 5.7 GM/DL (6.4-8.2) Albumin 2.8 GM/DL (3.4-5.0) Calcium Level 7.9 MG/DL (8.5-10.1) Potassium Level 3.1 MEQ/L (3.5-5.1) 3.3 MEQ/L (3.5-5.1) Carbon Dioxide Level 32.6 MEQ/L (21.0-32.0) Estimat Glomerular Filtration Rate 76 ML/MIN (>89) Total Creatine Kinase 658 U/L (39-308) 503 U/L (39-308) Imaging Last Impressions Head CT 11/21/16 5898 Signed Impressions: Service Date/Time: Tuesday, November 22, 2016 00:23 - CONCLUSION: Normal examination. Ari Perales MD PE at Discharge awake and alert, NAD lungs clear regular rhythm extremities no edema, no muscle tenderness up and ambulating- gait steady Pt update on day of discharge up and ambulasting good po intake 100% motivated with cleaning his act CM gave him info on lists of facilities for rehab- he states he will check into this Hospital Course Altered mental status secondary to PSA- REsolved- MS normal - Flacc[place] intoxication/cocaine/cannabis - Haldol and Ativan when necessary for agitation - Rhabdomyolysis -- conitnue IVF- - taking good po per patient - CK trending down Polysubstance abuse -counselled extensively - CM consult for treatment program/drug rehab as OP- patient very motivated HYpertesnion- per patient known history -started on Procardia po daily 30 mg XL= BP now- 140/70- will increase as needed Acute kidney injury- resolved - non oliguric Hypokalemia - KCL daily- recheck CM- [facility] referral- patient Hemal acted but not Thalia acted DVT GI prophylaxis Pt Condition on Discharge: Stable Discharge Disposition: Discharge Home Discharge Time: <= 30 minutes Discharge Instructions DIET: Follow Instructions for: Heart Healthy Diet Speech Therapy-Diet Recommends: Regular Additional Diet Instructions: encourage po fluids Activities you can perform: Weight Bearing as [place] Other Activity Instructions: po fluids Follow up Referrals: PCP Follow-up - 2-3 Days with [facility] New Medications: Nifedipine ER 24 HR (Nifedipine ER 24 HR) 30 Mg Tab 30 MG PO DAILY for HTN for 30 Days, TAB Marcelo Fitch MD Nov 25, 2016 14:31
== END 2016-11-25 14:47 | disposition home or self-care (01) | DRG 683 ==
LOC: NEPD 21:34 → NEDA 11-22 01:25 → EDBD 11-22 01:25 → N05A 11-22 17:31 → N05B 11-22 17:33 → N05A 11-23 16:56
PROVIDERS: ADMIT Internal Medicine; ATTEND Internal Medicine
DX: N17.9 Acute kidney failure, unspecified (principal); F19.221 Other psychoactive substance dependence with intoxication delirium; M62.82 Rhabdomyolysis; I10 Essential (primary) hypertension; E87.6 Hypokalemia
CPT/HCPCS: 70450; 80048; 80053; 80307; 82140; 82550; 82552; 83605; 83735; 84100; 84443; 85025; 96361; 96372; 96374; 96376; J1200; J1630; J1644; J2060; J2250; J3480; J7030; J7070